=== PATIENT | male | born 1955 | race Asian ===

== ENCOUNTER 2024-06-08 20:14 | Inpatient (IN) | payer MEDICARE ==
[~2024-06-08] VITALS: Ht 170.2 cm; Wt 51.3 kg
[2024-06-08 23:00] VITALS: BP 151/113; TEMP 98.4; O2SAT 95
[2024-06-08 23:01] VITALS: BP 151/113; TEMP 98.4; O2SAT 95
[2024-06-09] MEDS ORDERED: MAG HYDROX/AL HYDROX/SIMETH 30 ML UDC PO PRN (00:30)
[2024-06-09] MEDS ORDERED: ACETAMINOPHEN 325 MG TABLET PO PRN (00:30)
[2024-06-09] MEDS ORDERED: Z GUARD REMEDY 4 OZ OINT TP PRN (00:30)
[2024-06-09] MEDS ORDERED: ONDANSETRON HCL/PF 4 MG/2 ML VIAL IVP PRN (00:30)
[2024-06-09] MEDS ORDERED: MAGNESIUM HYDROXIDE 30 ML UDC PO PRN (00:30)
[2024-06-09] MEDS ORDERED: DOXYCYCLINE 100 MG VIAL ONE (01:40)
[2024-06-09] MEDS: DOXYCYCLINE 100 MG in IV D5W 100 ML IV SCH (02:07)
[2024-06-09] MEDS: MORPHINE SULFATE INJ 2 MG/ML DISP.SYRIN IV PRN (03:47)
[2024-06-09 04:00] VITALS: BP 146/84; TEMP 98.1; O2SAT 98
[2024-06-09 05:22] VITALS: O2SAT 98
[2024-06-09 06:15] LABS: APPEARANCE,URINE CLEAR (CLEAR); BILIRUBIN,URINE NEGATIVE (NEGATIVE); BLOOD, URINE NEGATIVE Ery/uL (NEGATIVE); COLOR,URINE DARK YELLOW (YELLOW); KETONES,URINE NEGATIVE (NEGATIVE); LEUKOCYTE ESTERASE ,URINE NEGATIVE (NEGATIVE); NITRITE, URINE NEGATIVE (NEGATIVE); PH,URINE 6.5 (5.0-8.0); PROTEIN,URINE NEGATIVE (NEGATIVE); UGLUCOSE NEGATIVE (NEGATIVE)
[2024-06-09 06:30] LABS: ADD URINE CULTURE NO; BACTERIA,URINE 1+ /HPF (None Seen); RBC,URINE 0-2 /HPF (0-2); SQUAMOUS EPITHELIAL CELL,UR 0-2 /HPF (None Seen)
[2024-06-09 06:31] LABS: MUCUS,URINE Few /LPF (None Seen)
[2024-06-09 07:18] LABS: BASOPHILS # (AUTO) 0.1 K/uL (0.0-0.2); BASOPHILS % (AUTO) 0.7 % (0.0-2.0); EOSINOPHILS % (AUTO) 0.2 % (0.0-6.0); HEMATOCRIT 45 % (39-51); HEMOGLOBIN 14.1 g/dL (13.5-17.5); LYMPHOCYTES # (AUTO) 0.8 K/uL (0.8-4.8); LYMPHOCYTES % (AUTO) 9.8 % (20.0-44.0); MEAN CORPUSCULAR HEMOGLOBIN 24 PG (26.0-33.0); MEAN CORPUSCULAR HGB CONC 31 g/dl (31.0-36.0); MEAN CORPUSCULAR VOLUME 75 fL (80-96); MONOCYTES # (AUTO) 0.6 K/uL (0.1-1.30); MONOCYTES % (AUTO) 7.4 % (2.0-12.0); NEUTROPHILS % (AUTO) 81.9 % (43.0-81.0); PLATELET COUNT (AUTO) 257 K/uL (150-450); RED BLOOD CELL COUNT(AUTO) 6.01 MIL/uL (4.5-6.0); RED CELL DISTRIBUTION WIDTH 20.5 % (11.5-15.0); WHITE BLOOD COUNT (AUTO) 8.5 K/uL (4.3-11.0)
[2024-06-09 07:30] VITALS: BP 136/74; TEMP 98.4; O2SAT 97
[2024-06-09 07:47] LABS: CHOLESTEROL 142 mg/dL (<200); HDL CHOLESTEROL 33 mg/dL (40-60); LDL 99 mg/dL (0-99); TRIGLYCERIDES 103 mg/dL (30-150)
[2024-06-09 08:13] LABS: LYMPHOCYTES % (MANUAL) 7 % (16-48); MONOCYTES % (MANUAL) 4 % (0-11.0); NEUTROPHILS % (MANUAL) 89 (42-76); PLATELET ESTIMATE ADEQUATE
[2024-06-09 08:19] LABS: ANISOCYTOSIS 1+; TARGET CELLS 1+
[2024-06-09] MEDS: ASPIRIN 81 MG TAB.CHEW PO SCH (08:31)
[2024-06-09] MEDS: PANTOPRAZOLE 40 MG VIAL IV SCH (08:31)
[2024-06-09] MEDS: FUROSEMIDE 40 MG/4 ML VIAL IV SCH (08:32)
[2024-06-09 08:53] LABS: CALCIUM, SERUM 8.5 mg/dL (8.5-10.1); CREATININE 0.9 mg/dL (0.6-1.3); POTASSIUM 3.7 mmol/L (3.5-5.1)
[2024-06-09 12:20] LABS: AMPHETAMINE, URINE POSITIVE (NEGATIVE); BARBITURATE, URINE NEGATIVE (NEGATIVE); BENZODIAZEPINE, URINE NEGATIVE (NEGATIVE); CANNABINOID, URINE POSITIVE (NEGATIVE); COCCAINE, URINE NEGATIVE (NEGATIVE); OPIATE, URINE NEGATIVE (NEGATIVE); PHENCYCLIDINE SCREEN,URINE NEGATIVE (NEGATIVE)
[2024-06-09] MEDS: METOPROLOL TARTRATE 50 MG TABLET PO SCH (12:30)
[2024-06-09 12:42] LABS: INR 1.22 (0.91-1.10); PROTHROMBIN TIME 12.8 SECS (9.2-11.1)
[2024-06-09] MEDS: CEFTRIAXONE 2 G in IV D5W 100 ML IV SCH (13:18)
[2024-06-09 16:00] VITALS: BP 128/79; TEMP 97.3; O2SAT 98
[2024-06-09 16:50] VITALS: O2SAT 97
[2024-06-09 20:00] VITALS: BP 109/78; TEMP 97.9; O2SAT 98
[2024-06-10] VITALS: BP 130/80; TEMP 97.7; O2SAT 97
[2024-06-10 04:00] VITALS: BP 114/69; TEMP 97.5; O2SAT 96
[2024-06-10 05:18] VITALS: O2SAT 97
[2024-06-10 06:20] LABS: BASOPHILS # (AUTO) 0.2 K/uL (0.0-0.2); BASOPHILS % (AUTO) 2.1 % (0.0-2.0); EOSINOPHILS % (AUTO) 0.4 % (0.0-6.0); HEMATOCRIT 43 % (39-51); HEMOGLOBIN 13.2 g/dL (13.5-17.5); LYMPHOCYTES # (AUTO) 0.9 K/uL (0.8-4.8); LYMPHOCYTES % (AUTO) 11.6 % (20.0-44.0); MEAN CORPUSCULAR HEMOGLOBIN 23 PG (26.0-33.0); MEAN CORPUSCULAR HGB CONC 31 g/dl (31.0-36.0); MEAN CORPUSCULAR VOLUME 75 fL (80-96); MONOCYTES # (AUTO) 0.5 K/uL (0.1-1.30); MONOCYTES % (AUTO) 7.2 % (2.0-12.0); NEUTROPHILS # (AUTO) 5.9 K/uL (1.8-8.9); NEUTROPHILS % (AUTO) 78.7 % (43.0-81.0); PLATELET COUNT (AUTO) 281 K/uL (150-450); RED BLOOD CELL COUNT(AUTO) 5.75 MIL/uL (4.5-6.0); RED CELL DISTRIBUTION WIDTH 20.1 % (11.5-15.0); WHITE BLOOD COUNT (AUTO) 7.5 K/uL (4.3-11.0)
[2024-06-10 06:28] LABS: ALBUMIN 2.5 g/dL (3.4-5.0); BILIRUBIN,TOTAL 1.1 mg/dL (0.2-1.0); CALCIUM, SERUM 8.1 mg/dL (8.5-10.1); CREATININE 1.1 mg/dL (0.6-1.3); POTASSIUM 3.9 mmol/L (3.5-5.1); TOTAL PROTEIN, SERUM 6.8 g/dL (6.4-8.2)
[2024-06-10 06:39] LABS: MAGNESIUM 1.8 mg/dL (1.8-2.4); PHOSPHORUS 3.7 mg/dL (2.5-4.9)
[2024-06-10 08:00] VITALS: BP 135/76; TEMP 98.5; O2SAT 95
[2024-06-10] MEDS: FUROSEMIDE 40 MG/4 ML VIAL IV SCH (08:46)
[2024-06-10] MEDS: ENOXAPARIN SODIUM 40 MG/0.4 ML DISP.SYRIN SQ SCH (08:49)
[2024-06-10] MEDS: PANTOPRAZOLE 40 MG TABLET.DR PO SCH (08:50)
[2024-06-10] MEDS: POTASSIUM CHLORIDE 20 MEQ TAB.PRT.SR PO SCH ×2 (08:50→12:22)
[2024-06-10] MEDS: ASPIRIN 81 MG TAB.CHEW PO SCH (08:50)
[2024-06-10] MEDS: MORPHINE SULFATE INJ 2 MG/ML DISP.SYRIN IV PRN (11:28)
[2024-06-10 20:00] VITALS: BP 116/64; TEMP 97.9; O2SAT 100
[2024-06-10 20:40] VITALS: O2SAT 96
[2024-06-11] VITALS: BP 123/66; TEMP 98.4; O2SAT 99
[2024-06-11 01:10] LABS: HBSAG SCREEN Negative (Negative); HEPATITIS A AB, IgM Negative (Negative); HEPATITIS B CORE AB, IgM Negative (Negative)
[2024-06-11 04:00] VITALS: BP 119/71; TEMP 98.3; O2SAT 99
[2024-06-11] MEDS: ENSURE ENLIVE CHOC 237 ML CAN PO SCH (09:03)
== END 2024-06-11 12:09 | disposition left against medical advice (07) | DRG 441 ==
LOC: TELE 22:53
PROVIDERS: ATTEND Nurse Practitioner Family
DX: K76.89 Other specified diseases of liver (principal); I21.A1 Myocardial infarction type 2; J15.69 Pneumonia due to other Gram-negative bacteria; I50.23 Acute on chronic systolic (congestive) heart failure; J15.9 Unspecified bacterial pneumonia; J96.01 Acute respiratory failure with hypoxia; E44.0 Moderate protein-calorie malnutrition; K92.2 Gastrointestinal hemorrhage, unspecified; R18.8 Other ascites; J98.11 Atelectasis; J90 Pleural effusion, not elsewhere classified; N13.30 Unspecified hydronephrosis; R64 Cachexia; M45.9 Ankylosing spondylitis of unspecified sites in spine; Z53.29 Procedure and treatment not carried out because of patient's decision for other reasons; E80.6 Other disorders of bilirubin metabolism; R74.01 Elevation of levels of liver transaminase levels; E88.09 Other disorders of plasma-protein metabolism, not elsewhere classified; F15.90 Other stimulant use, unspecified, uncomplicated; Z99.81 Dependence on supplemental oxygen
CPT/HCPCS: 36415; 71045-TC; 76705-TC; 80048-TC; 80053-TC; 80061-TC; 81001; 83735-TC; 84100-TC; 84484-TC; 85025-TC; 85730-TC; 87040-TC; 87086-TC; 93307-TC; 94761-TC; 94799-TC; 97110-TC; 97116-TC; 97530-TC; A4223; G0378; J0696; J1650; J1940; J2270; J2470; J3490; J7050; J7060